=== PATIENT | female | born 1965 | race Caucasian/White ===

== ENCOUNTER → 2022-11-23 13:04 | Outpatient (BNVA) | payer MEDICARE, MEDICAID, SELFPAY | PROVIDERS: PCP Family Medicine; Referring Provider Family Medicine; Visit Provider Specialist | DX: G35 Multiple sclerosis (principal); G62.9 Polyneuropathy, unspecified; R41.89 Other symptoms and signs involving cognitive functions and awareness | CPT/HCPCS: 99205 ==